=== PATIENT | female | born 1960 | race Caucasian/White ===

== ENCOUNTER 2017-01-31 06:20 | Day surgery (SDC) | payer BC ==
[~2017-01-31] VITALS: Ht 142.2 cm; Wt 38.2 kg
[2017-01-31] VITALS (12 sets, daily range): BP systolic 136–203; BP diastolic 62–87; PULSE 58–78; RESP 16–20; Ht 142.2 cm; Wt 38.2 kg
[~2017-01-31 06:20] MED LIST: CEFAZOLIN 2 GM/50 ML (PMX) 50 ML IVPB SCH; SOD CHLORIDE 0.9% 1,000 ML IV SCH
[2017-01-31] MEDS ORDERED: BUPIVACAINE 0.25% (MPF) 30 ML INJ ONE (07:05)
[2017-01-31] MEDS ORDERED: FENTAnyl 50 MCG/ML VIAL ONE (07:46)
[2017-01-31] MEDS ORDERED: LIDOCAINE 2% (SDV) 5 ML INJ ONE (08:08)
[2017-01-31] MEDS ORDERED: PROPOFOL 20 ML ONE (08:08)
[2017-01-31] MEDS ORDERED: CEFAZOLIN 1 GM INJ ONE (08:08)
[2017-01-31] MEDS ORDERED: ROPIVACAINE 0.5 % 30 ML VIAL ONE (08:08)
[2017-01-31] MEDS ORDERED: SUCCINYLCHOLINE CHLORIDE 100 MG/5 ML SYG IV ONE (08:08)
[2017-01-31] MEDS ORDERED: ROCURONIUM 50 MG INJ ONE (08:08)
[2017-01-31] MEDS ORDERED: SUGAMMADEX SODIUM 200 MG/2 ML VIAL IV ONE (08:09)
--- NOTE | 2017-01-31 08:23 | OPR ---
Date/Time of Note Date/Time of Note DATE: 01/31/17 TIME: 08:19 Operative Report Procedure Date: Jan 31, 2017 Preoperative Diagnosis symptomatic gallstones Postoperative Diagnosis same Operation/Procedure Performed 1. laparoscopic cholecystectomy 2. therapeutic injection of subcutaneous local anesthesia Surgeon see signature line Mechanical Project Engineer none Anesthesia Type: general Estimated Blood Loss: 0 - 10 ml's Transfusion none Specimen gallbladder Grafts/Implants none Complications none Pt Condition Post Procedure: stable Indications This is a 48-year-old female with symptoms under gallstones. She requests surgical excision of her gallbladder. Risks alternatives benefits and percent were discussed the patient. Patient expressed understanding consents to the operation. Procedure Description Patient is taken to the OR and prepped and draped in usual sterile fashion. Surgical timeout was performed. IV antibiotics given. Infraumbilical transverse incision is made with a 15 blade. Dissection Carrs carried onto the fascia. The fascia was grasped with Echo's and divided with curved Mustafa scissors. 0 Vicryl U stitch was placed into the fascia. Blueness on trocar is introduced. Pneumoperitoneum is established. Midepigastric 12 mm optical trocar was placed under direct visualization. Right upper quadrant upper flank 5 mm optical trochars were placed in the direct visualization. Upon initial inspection there are some adhesions to the gallbladder which were taken down bluntly. The gallbladder was grasped by the fundus and retracted in the lateral and our direction. The cautery dissection was initiated laterally to allow careful dissection of the cystic duct. The cystic duct appeared thickened and the gallbladder was hydropic and intrahepatic. The gallbladder was decompressed and irrigation suction was used to suction out the hydropic clear fluid. Due to thickened tissues around the cystic duct this area was divided with a 35 mm echelon vascular the staple line was reinforced with clips. The cystic artery was divided with 3 clips proximal and clip distal. The gallbladder was taken of the gallbladder bed. There is good hemostasis. The gallbladder was retrieved using Endo Catch bag. Ports removed under direct visualization. 0 Vicryl U stitch was tied down. Skin incisions were closed with inzorb Zobel stapler and interrupted 4-0 Monocryl. Therapeutic subcutaneous local anesthesia was injected throughout the incision site. Dry dressings were applied. Load stapler. Magalys GUERRERO Jan 31, 2017 08:23
[2017-01-31] MEDS ORDERED: ONDANSETRON 4 MG INJ IV PRN (08:30)
[2017-01-31] MEDS ORDERED: HYDROmorphONE (0.2 MG/ML) 10ML SYG IV PRN ×2 (08:30)
[2017-01-31] MEDS ORDERED: HYDROCODONE/APAP (5/325) TAB PO ONE (08:30)
[2017-01-31] MEDS ORDERED: METOCLOPRAMIDE 10 MG INJ IV PRN (08:30)
[2017-01-31] MEDS ORDERED: FENTAnyl 50 MCG/ML VIAL IV PRN (08:30)
[2017-01-31] MEDS ORDERED: DIPHENHYDRAMINE 50 MG INJ IV PRN (08:30)
[2017-01-31] MEDS ORDERED: MEPERIDINE 25 MG INJ IV PRN (08:30)
[2017-01-31] MEDS ORDERED: BUPIVACAINE 0.25% (MPF) 30 ML INJ INJ ONE (08:42)
[2017-01-31] MEDS: FENTAnyl 50 MCG/ML VIAL IV PRN ×2 (08:47→08:56)
--- NOTE | 2017-02-02 18:49 | RADRPT ---
Vent Rate: 65 bpm RR Interval: 0 msec CO Interval: 142 msec QRS Duration: 96 msec QT Interval: 402 msec QTC Interval: 418 msec P-R-T [place]: 67 - 76 - 70 degrees Normal sinus rhythm Normal ECG Electronically Signed By: Dionisio Dash [id number]
== END 2017-01-31 10:58 | disposition home or self-care (01) ==
LOC: SDS 06:20
PROVIDERS: ATTEND Surgery
DX: K81.1 Chronic cholecystitis (principal)
CPT/HCPCS: 47562; 88304; 93005; J0690; J1200; J2175; J2405; J2795; J3010; Z7512; Z7610